=== PATIENT | female | born 1960 | race Hispanic/Latino ===

== ENCOUNTER 2023-11-12 08:15 | Observation (INO) | payer BC, OTHER ==
[~2023-11-12] VITALS: Ht 149.9 cm; Wt 89.4 kg
[2023-11-12 08:56] LABS: BASOPHILS # (AUTO) 0.05 K/uL (0.00-0.20); BASOPHILS % (AUTO) 0.8 % (0.0-5.0); EOSINOPHILS # (AUTO) 0.17 K/uL (0.00-0.70); EOSINOPHILS % (AUTO) 2.7 % (0.0-8.0); HEMATOCRIT 42.2 % (36-48); IMMATURE GRANULOCYTE ABSOLUTE 0.02 K/uL (0-1); LYMPHOCYTES # (AUTO) 2.3 K/uL (1.0-4.8); LYMPHOCYTES % (AUTO) 36.4 % (21.0-51.0); MEAN CORPUSCULAR HGB CONC 32.5 g/dL (32.0-36.0); MEAN CORPUSCULAR VOLUME 92.3 fL (79-99); MONOCYTES # (AUTO) 0.6 K/uL (0.1-1.0); MONOCYTES % (AUTO) 9.1 % (3.0-13.0); NEUTROPHILS # (AUTO) 3.2 K/uL (1.8-7.7); NEUTROPHILS % (AUTO) 50.7 % (40.0-77.0); PLATELET COUNT (AUTO) 238 K/uL (130-400); RED BLOOD CELL COUNT(AUTO) 4.57 MIL/uL (4.00-5.50); RED CELL DISTRIBUTION WIDTH 12.8 % (11.0-15.5); WHITE BLOOD COUNT (AUTO) 6.3 K/uL (4.8-10.8)
[2023-11-12 09:22] LABS: CREATININE 0.6 mg/dL (0.5-1.0); POTASSIUM 4.1 mmol/L (3.5-5.1)
[2023-11-12 09:26] LABS: ALBUMIN 3.7 g/dL (3.5-5.0); BILIRUBIN,TOTAL 0.4 mg/dL (0.2-1.0); TOTAL PROTEIN, SERUM 7.3 g/dL (6.0-8.3)
[2023-11-12 09:30] LABS: APPEARANCE,URINE CLOUDY (CLEAR); BILIRUBIN,URINE NEGATIVE (NEGATIVE); COLOR,URINE LIGHT-YELLOW (YELLOW); GLUCOSE, URINE (UA) NEGATIVE (NEGATIVE); KETONES,URINE NEGATIVE (NEGATIVE); LEUKOCYTE ESTERASE ,URINE 250 Leu/uL (NEGATIVE); NITRATE,URINE NEGATIVE (NEGATIVE); PH,URINE 5.5 (5.0-8.0); PROTEIN,URINE 10 mg/dL (NEGATIVE); UROBILINOGEN,URINE 0.2 mg/dL (0.2-1.0)
[2023-11-12 09:38] LABS: ADD UA MICROSCOPIC YES
[2023-11-12] MEDS: ONDANSETRON 4MG INJ IVP ONE (09:46)
[2023-11-12] MEDS: MORPHINE 4 MG SYG IVP ONE (09:46)
[2023-11-12] MEDS: 0.9%NACL 1000ML 1,000 ML IV ONE (09:47)
[2023-11-12 09:54] LABS: MUCUS,URINE RARE LPF (None Seen); SQUAMOUS EPITHELIAL CELL,UR MANY /HPF (0-2)
[2023-11-12] MEDS ORDERED: IOHEXOL 350 MG/ML 100ML INFUS..BTL IV ONE (10:36)
[2023-11-12] MEDS: DICYCLOMINE HCL 10 MG/5 ML ML PO ONE (12:02)
[2023-11-12] MEDS: MAG/ALUM/SIMETH 30 ML UDCUP PO ONE (12:02)
[2023-11-12] MEDS: CEFTRIAXONE 1G VIAL IVPB ONE (12:02)
[2023-11-12] MEDS: LIDOCAINE HCL 2% VISCOUS 15 ML UDCUP PO ONE (12:02)
[2023-11-12] MEDS ORDERED: ONDANSETRON 4MG INJ IVP PRN (15:00)
[2023-11-12] MEDS ORDERED: CHOL500045 PO (15:01)
[2023-11-12] MEDS ORDERED: ESTR1GEL TD (15:01)
[2023-11-12] MEDS: 0.9%NACL 1000ML 1,000 ML IV SCH (15:19)
[2023-11-12] MEDS: MORPHINE 2 MG SYG IVP PRN (15:48)
[2023-11-12 23:35] VITALS: BP 127/54; PULSE 87; RESP 18
[2023-11-13 06:08] VITALS: BP 118/57; PULSE 66; RESP 18
[2023-11-13 08:00] VITALS: BP 113/64; PULSE 60; RESP 16
[2023-11-13 08:50] VITALS: O2SAT 94
[2023-11-13] MEDS ORDERED: PANT40GR PO (09:22)
[2023-11-13] MEDS ORDERED: ACETAMINOPHEN 325 MG TAB PO PRN (09:30)
[2023-11-13] MEDS ORDERED: LACTULOSE 20 GM/30 ML UDCUP PO PRN (09:30)
[2023-11-13] MEDS ORDERED: MAG/ALUM/SIMETH 30 ML UDCUP PO PRN ×2 (09:30)
[2023-11-13] MEDS: ACETAMINOPHEN 325 MG TAB PO PRN (09:47)
[2023-11-13 10:47] VITALS: TEMP 98.1
[2023-11-13] MEDS: PANTOPRAZOLE 40 MG TAB DR PO SCH (11:18)
[2023-11-13 12:00] VITALS: BP 132/61; PULSE 77; RESP 18
== END 2023-11-13 14:45 | disposition home or self-care (01) ==
LOC: EDH 08:15 → EDHIP 14:46 → 3BH 21:54
PROVIDERS: ADMIT Internal Medicine; ATTEND Internal Medicine
DX: K80.20 Calculus of gallbladder without cholecystitis without obstruction (principal); R07.89 Other chest pain; K43.9 Ventral hernia without obstruction or gangrene; I44.7 Left bundle-branch block, unspecified; N39.0 Urinary tract infection, site not specified; E66.9 Obesity, unspecified; I25.10 Atherosclerotic heart disease of native coronary artery without angina pectoris; Z68.39 Body mass index [BMI] 39.0-39.9, adult; Z98.84 Bariatric surgery status
CPT/HCPCS: 96374; 96376; 96361 ×2; 96375; 99285; 84484 ×4; 80053; 83690; 85025; 87088; 81001; 36415; 74177; 76705; 93005 ×3; G0378 ×24; J2270 ×3; J7030; J0696; J2405; Q9967

== ENCOUNTER → 2023-11-23 | Outpatient (CLI) | payer OTHER ==
[~2023-11-23] MED LIST: CHOL500045 PO; ESTR1GEL TD; PANT40GR PO
== END | disposition home or self-care (01) ==
LOC: OIH 10:02
PROVIDERS: ATTEND Internal Medicine
DX: Z13.6 Encounter for screening for cardiovascular disorders (principal)
CPT/HCPCS: 75571

== ENCOUNTER → 2023-11-30 | Outpatient (CLI) | payer BC | END | disposition home or self-care (01) | LOC: RAH 12:41 | PROVIDERS: ATTEND Internal Medicine | DX: R07.9 Chest pain, unspecified (principal); Z82.79 Family history of other congenital malformations, deformations and chromosomal abnormalities | CPT/HCPCS: 93306 ==

== ENCOUNTER → 2023-12-21 | Outpatient (CLI) | payer BC | END | disposition home or self-care (01) | LOC: RAH 14:07 | PROVIDERS: ATTEND Obstetrics & Gynecology | DX: R14.0 Abdominal distension (gaseous) (principal) | CPT/HCPCS: 76856 ==

== ENCOUNTER 2024-02-20 02:57 | Emergency (ER) | payer BC ==
[~2024-02-20] VITALS: Ht 149.9 cm; Wt 88.5 kg
[2024-02-20] MEDS: ORPHENADRINE 60MG/2ML IM ONE (03:50)
[2024-02-20] MEDS: TRIAMCINOLONE ACETONIDE 40 MG/ML 1ML VIAL IM ONE (03:50)
[2024-02-20 04:22] VITALS: BP 161/111; PULSE 62; RESP 18; O2SAT 98
[2024-02-20 04:52] LABS: SARS-CoV-2, RNA, NAAT POSITIVE SARS CoV-2 (NEGATIVE)
[2024-02-20] MEDS ORDERED: MOLN200C PO (04:58)
== END 2024-02-20 05:06 | disposition home or self-care (01) ==
LOC: EDH 02:57
DX: U07.1 COVID-19 (principal); Z79.899 Other long term (current) drug therapy
CPT/HCPCS: 99284; 87635; 72040; 96372 ×2; 93005; J3301; J2360